=== PATIENT | male | born 1965 | race Caucasian/White ===

== ENCOUNTER 2017-01-02 12:51 | Day surgery (SDC) | payer OTHER ==
[~2017-01-02] VITALS: Ht 182.9 cm; Wt 100.1 kg
[2017-01-02] MEDS ORDERED: SIMVASTATIN (15:58)
[2017-01-02] MEDS ORDERED: METFORMIN (15:59)
[2017-01-02 16:02] VITALS: Ht 182.9 cm; Wt 100.1 kg
[2017-01-02] MEDS ORDERED: PROPOFOL 20 ML ONE (16:08)
[2017-01-02] MEDS ORDERED: LIDOCAINE 2% (SDV) 5 ML INJ ONE (16:08)
[2017-01-02] MEDS ORDERED: MIDAZOLAM 1 MG/ML 2 ML INJ ONE (16:08)
[2017-01-02 16:11] VITALS: BP 132/83; PULSE 78; RESP 18
[2017-01-02 17:19] VITALS: BP 129/90; PULSE 76; RESP 12
--- NOTE | 2017-01-03 06:51 | GILP ---
DATE OF PROCEDURE: PROCEDURE: Colonoscopy with polyp ablation. BRIEF HISTORY AND INDICATION: The patient is being evaluated for colorectal cancer screening. PREMEDICATION: Monitored anesthesia care by the anesthesiologist. SURGEON: Daniela Solano MD INSTRUMENT USED: Olympus colonoscope. PREPARATION: Adequate. TECHNIQUE: After informed consent, with the patient/relatives understanding the procedure, its indic ations potential risks and complications, including but not limited to: allergic reaction, bleeding, perforation, infection, missed lesions and after all pertinent questions were answered to the patie nt's satisfaction, the patient/relatives signed the witnessed informed consent. Following this, premedication was administered slowly IV push by under careful cardiovascular and re spiratory monitoring with pulse oximetry, automatic blood pressure and monitor tech. Once the sedativ e effect was achieved, the patient was placed in the left lateral decubitus position, digital rectal examination was performed. The colonoscope was then introduced and advanced under visual control th roughout all segments of the colon including: the rectum, sigmoid, descending colon, splenic flexure , transverse colon, hepatic flexure, ascending colon and finally reaching the cecum which was clearl y identified by transillumination, finger indentation and the ileocecal valve. Careful examination o f the mucosa of the lower gastrointestinal tract both on insertion as well as withdrawal of the inst rument disclosed the following findings: Rectal Examination: No evidence of perirectal disease, no masses. Colonic Mucosa: The colonic mucosa is remarkable for a 3-mm polyp in the descending colon, which wa s ablated with biopsy forceps. Otherwise the colonic mucosa was unremarkable throughout. The ileoc ecal valve was clearly identified and appears unremarkable. The instrument was withdrawn, reexamini ng the mucosa in detail. No additional abnormalities were noted with the exception of moderate size d internal hemorrhoids. The instrument was then withdrawn, the patient tolerated the procedure well and was transferred out of the [facility] awake and in good condition to continue recovery under observation. IMPRESSION: 1. A 3-mm polyp in the descending colon, ablated. 2. Otherwise normal colonic mucosa to the cecum. 3. Moderate size internal hemorrhoids. PLAN: Pathology will be reviewed as soon as available. Annual Hemoccult stool testing is recommend ed. Colonoscopy in 5 years is recommended. Dictated By: DANIELA SOLANO MS/HEATHER Conf#: [id number] DID#: [id number]
== END 2017-01-02 18:57 | disposition home or self-care (01) ==
LOC: GIL 12:51
PROVIDERS: ATTEND Internal Medicine Gastroenterology
DX: Z12.11 Encounter for screening for malignant neoplasm of colon (principal); D12.4 Benign neoplasm of descending colon; K64.8 Other hemorrhoids
CPT/HCPCS: 45380; 88305; J2250; Z7610